=== PATIENT | female | born 2000 | race Caucasian/White ===

== ENCOUNTER 2021-02-03 13:39 | Emergency (ER) | payer BC, SELFPAY ==
[2021-02-03 13:46] VITALS: BP 108/49; PULSE 84; RESP 16; O2SAT 100
--- NOTE | 2021-02-03 15:23 | ED.WOUNDLAC ---
HPI - Wound/Laceration General Chief Complaint: Wound/Laceration Stated Complaint: Fell down stairs had scissors in hand . Laceration Time Seen by Provider: 02/03/21 15:02 Source: patient Mode of arrival: ambulatory Limitations: no limitations History of Present Illness HPI narrative: This is a 20-year-old female that presents the emergency department for laceration to the left forearm sustained just prior to arrival. Reports she was walking downstairs with scissors and slipped and fell. Reports she accidentally cut her left arm. Denies any other injuries. Denies hitting her head or loss of consciousness. She is not up-to-date on tetanus. Denies decreased range of motion or numbness. Related Data Home Medications Medication Instructions Recorded Confirmed No Home Medications 02/03/21 02/03/21 Allergies Allergy/AdvReac Type Severity Reaction Status Date / Time amoxicillin Allergy Unknown Verified 02/03/21 15:30 blue dye Allergy Hives Verified 02/03/21 15:30 Penicillins Allergy Unknown Verified 02/03/21 15:30 red dye Allergy Hives Verified 02/03/21 15:30 Review of Systems Review of Systems: CONSTITUTIONAL: Denies fever SKIN: Reports laceration MUSCULOSKELETAL: Denies joint pain, or myalgia. NEUROLOGIC: Denies numbness, or weakness. All systems reviewed & are unremarkable except as noted in HPI and below PMFSH Past Medical History Medical History (Updated 02/03/21 @ 16:12 by Arleen Ramirez PA-C) No active medical problems Social History Social History (Updated 02/03/21 @ 15:24 by Arleen Ramirez PA-C) Substance use: current Substance use type: marijuana Exam Narrative: GENERAL: Well-appearing, well-nourished, and in no acute distress. HEAD: Normocephalic, atraumatic. EYES: EOMI. EXTREMITIES: Normal range of motion. No edema. 5 cm linear laceration into subcutaneous tissue over the left forearm SKIN: Warm, dry, no rash. NEURO: No focal deficits. Alert and oriented x3. PSYCH: Normal mood and affect Course Vital Signs Vital signs: Vital Signs Pulse Rate 84 02/03/21 13:46 Respiratory Rate 16 02/03/21 13:46 Blood Pressure 108/49 L 02/03/21 13:46 Pulse Oximetry 100 02/03/21 13:46 Temperature 98.3 F 02/03/21 15:24 Pulse Rate 82 02/03/21 15:24 Respiratory Rate 18 02/03/21 15:24 Blood Pressure 131/86 02/03/21 15:24 Pulse Oximetry 100 02/03/21 15:24 Procedures Laceration Laceration 1: Date: 02/03/21 Time: 16:10 Site: upper extremity Side (If applicable): left Size (cm): 5 Description: linear Depth: simple, single layer Local Anesthetic: lidocaine 1% and with epi Amount of anesthesia used (mL): 4 Pre-repair: wound explored and irrigated ====== Skin Level ====== Skin layer closed with: yasmine Number of sutures: 10 ====== Subcutaneous Layer ====== ====== Muscle Layer ====== ====== Tendon Layer ====== MDM - Wound/Laceration MDM Narrative Medical decision making narrative: Patient presents to the emergency department for laceration to the left forearm sustained just prior to arrival. Wound was irrigated and closed with yasmine. Patient was educated on wound care. She is to follow-up with her primary care doctor. She was given warnings to return to the ER Critical Care Time Critical Care Time Critical Care Time: No Discharge Plan Discharge Clinical Impression: Laceration Patient Disposition: Home, Self-Care Condition: Stable Instructions: Laceration (ED), Staple Care (ED) Additional Instructions: Return to the emergency department if you experience fever, redness or swelling of your wound, abnormal drainage from your wound, or any other symptoms that are concerning to you. Apply antibiotic ointment daily. Do not soak the wound. Clean with mild soap and water daily Follow-up with your primary care doctor for staple removal in
[2021-02-03 15:24] VITALS: BP 131/86; PULSE 82; RESP 18; TEMP 36.8; O2SAT 100
--- NOTE | 2021-02-03 15:40 | PC.NURSE ---
Pharmacy called for lidocaine. Will tube to ED station.
[2021-02-03] MEDS: TETANUS,DIPHTHERIA,AC PERTUSSIS ADULT (0.5 ML) BOOSTRIX IM (16:12)
[2021-02-03 16:17] VITALS: BP 116/75; PULSE 75; RESP 18; TEMP 36.8; O2SAT 100
== END 2021-02-03 16:30 | disposition home or self-care (01) ==
PROVIDERS: Emergency Provider Emergency Medicine; PCP Emergency Medicine
DX: S51.812A Laceration without foreign body of left forearm, initial encounter (principal); Z23 Encounter for immunization; W27.2XXA Contact with scissors, initial encounter
CPT/HCPCS: 12002; 90471; 90715; 99282